=== PATIENT | female | born 1970 | race Caucasian/White ===

== ENCOUNTER → 2016-10-25 | Day surgery (SDC) | payer OTHER ==
[~2016-10-25] MED LIST: AREDS PO; BUPROPION XL150 MG PO; CLARITIN10 M3 PO; FLEXERIL10 MG PO; HYDROCODON-ACE1 EAC7 PO; HYDROXYZINE HCL50 MG PO; INDERAL20 MG PO; OXCARBAZEPINE150 M2 PO; ROBAXIN500 MG PO; STOOL SOFTENER100 M1 PO; VITAMIN D250000 UNIT PO; VOLTAREN75 MG PO
--- NOTE | ~2016-10-25 | OR ---
Unit #: [id number] #: [id number] Patient: SHAQUILLE AMIN [id number] [address] [place], [place] [address] [id number] O MR#: [id number] NAME: SHAQUILLE AMIN ROOM: Date of Procedure: 10/25/2016 Admission Date: 10/25/2016 Surgeon: Adriano Em M.D. : 1970 Attending Physician: Adriano Em M.D. Primary Care Physician: Kaushik Lombardi Aprn OPERATIVE REPORT PREOPERATIVE DIAGNOSES 1. Chronic arachnoiditis with L5 radiculopathy bilaterally. 2. Postlaminectomy pain syndrome. 3. Chronic pain syndrome. POSTOPERATIVE DIAGNOSES 1. Chronic arachnoiditis with L5 radiculopathy bilaterally. 2. Postlaminectomy pain syndrome. 3. Chronic pain syndrome. PROCEDURES PERFORMED 1. Implantation of spinal cord stimulator Medtronic Octrode x2. 2. Physician programing of stimulator over 1 hour. 3. Fluoroscopy. SURGICAL INDICATION AND RATIONALE Ms. Mariela Maloney is a pleasant 46-year-old female, who has been having severe low back pain for over a decade, which also radiates down the leg. The patient has pins and needles sensation associated with this pain. The patient has had spinal fusion done about 4 years ago and has been in miserable pain. The patient has tried pain medications, epidural injections, nonsteroidal anti-inflammatory medications, physical therapy, day care home provider, various type of epidurals in the past, which have not helped the patient. This culminated and the patient having a spinal fusion surgery, which also has not helped to contain her pain. The patient consistently rates her pain at about 8 to 9 out of 10 and at times describes this pain as being lancinating and burning in nature. The patient has an element of neuropathic pain, which I believe will be amenable to spinal cord stimulation. The patient is undergoing cardiac clearance and a psychological evaluation both of which did not indicate any contraindication to move forward. The patient has also undergone an extensive education process regarding the do's, don't's, and the risks, benefits, and alternatives available and she acknowledges understanding of how this device works and the process through which she has to go through a trial first before going for the permanent implantation. DESCRIPTION OF PROCEDURE After obtaining full informed consent and after discussion with the patient of possible complications including infection, bleeding, paralysis, mild headaches, , and other perioperative complications were discussed with the patient and consent was obtained in front of the preoperative nurse, Cristina. The patient was then taken back to the Unit #: [id number] #: [id number] Patient: SHAQUILLE AMIN operating room where she was placed in the prone position and monitored anesthesia care was provided by the anesthesiology after all standard monitors are placed. The patient was prepped and draped in the usual fashion. 30 minutes before entering the operating room, the patient received 2 g of vancomycin. The patient's back was then visualized under fluoroscopy and I identified the interspace between L2 and L3. After the skin target sites were anesthetized, I placed a 14-gauge Tuohy needle into the L2-3 interspace using loss of resistance technique. Once the epidural space was accessed I navigated a Medtronic 8-electrode through the Tuohy to reach the midline at the upper border of T7. I made sure to visualize the lateral fluoroscopic view to make sure the electrode was to posterior epidural space. Once this electrode was in place, I placed a second Tuohy needle to access the epidural space once again using loss of resistance technique. Once the epidural space was accessed and after negative aspiration of heme, CSF, and paresthesia, I placed a second Medtronic 8 contact electrode through the Tuohy needle again using the midline position and ascertaining that the electrode was in the posterior epidural space using lateral projection of the C-arm. I made sure that this electrode was in the midline right behind the contact 8 of the first electrode. This then allowed the 16 electrodes to be in a straight line from T7 down. Once the electrode in place, the patient was brought back to a more superficial plane of anesthesia, so I could freely communicate with the patient. Once this was done, spinal cord stimulator programing was conducted. I was able to get all the painful areas in the low back and down both lower extremities with paresthesia from the spinal cord programing. The patient made the remark that 100% of her painful areas were covered with stimulation. Once this was done, the Tuohy needle along with stylets were removed and the 2 electrodes were secured to the skin using Mastisol, Steri-Strips, and Tegaderm. The patient was then brought back to the recovery room for neurological monitoring. PLAN OF CARE The patient was discharged home after she recovered from anesthesia with the instruction that she should return to my office the following Friday to conduct high definition evolved workflow programing. The patient acknowledges understanding of all the risks, benefits, and alternatives available and would like to proceed. Dictated by... Delia Mcfadden/jaime TD: 10/26/2016 06:19 JOB #: [id number] OPERATIVE REPORT Page 1 of 1 X Adriano Em MD X PROCEDURE OPERATIVE NOTE
--- NOTE | ~2016-10-25 | CR119 ---
[facility] A Service of [facility] RADIOLOGY TEXT RESULTS PATIENT: SHAQUILLE AMIN LOCATION: [facility] : 66 UNIT #: [id number] AGE: [address]: Adriano Em MD SEX: F ORDER DR: [id number] [facility] [address] [place], [place] [address] [id number] O MR#: [id number] Acc #: [id number] NAME: SHAQUILLE AMIN : 1970 SEX: F STUDY DATE/TIME: 10/25/2016 15:34 UNIT: [facility] ROOM: STUDY DESCRIPTION: CR Fluoro Up To 1 Hr Attending Physician: Adriano Em M.D. Ordering Physician: Ivan Em M.D. Primary Care Physician: Kaushik Lombardi Aprn MEDICAL IMAGING REPORT This report is preliminary unless electronic signature is present EXAM Thoracic spine intraoperative spot films, 4 views HISTORY Back pain. Spinal cord stimulator placement. FINDINGS 4 fluoroscopic intraoperative spot films of the lower thoracic spine extending to the thoracolumbar junction demonstrate intraspinal stimulator leads extending along the posterior margin of the lower thoracic canal, with their tips directed superiorly at T7 and T8. Dictated by... Jaswinder Reed M.D. THIS IS AN ELECTRONICALLY VERIFIED REPORT Jaswinder Reed M.D. at 10/26/2016 11:40 PM DFL/pcl TD: 10/25/2016 21:27 JOB #: [id number] MEDICAL IMAGING REPORT Page 1 of 1 COPY
--- NOTE | ~2016-10-25 | EKG ---
PATIENT: SHAQUILLE AMIN UNIT #: [id number] Ventricular Rate: 85 BPM Atrial Rate: 85 BPM P-R Interval: 156 ms QRS Duration: 82 ms Q-T Interval: 362 ms QTC Calculation(Bezet): 430 ms P [place]: 66 degrees Calculated R [place]: 29 degrees Calculated T [place]: 55 degrees Diagnosis Line: Normal sinus rhythm Diagnosis Line: Nonspecific T wave abnormality Diagnosis Line: Abnormal ECG Diagnosis Line: No previous ECGs available Diagnosis Line: Confirmed by IAIN GODWIN MD ([id number]) on Diagnosis Line: 10/27/2016 8:43:29 AM INTERPRETING MD: ZHANNA
--- NOTE | ~2016-10-25 | OR ---
Unit #: [id number] #: [id number] Patient: SHAQUILLE AMIN [id number] [address] [place], [place] [address] [id number] O MR#: [id number] NAME: SHAQUILLE AMIN ROOM: Date of Procedure: 10/25/2016 Admission Date: 10/25/2016 Surgeon: Adriano Em M.D. : 1970 Attending Physician: Adriano Em M.D. Primary Care Physician: Kaushik Lombardi Aprn OPERATIVE REPORT PREOPERATIVE DIAGNOSIS Internal disruption of disk with L5 radiculopathy, bilateral, right side worse than left. POSTOPERATIVE DIAGNOSIS Internal disruption of disk with L5 radiculopathy, bilateral, right side worse than left. PROCEDURES PERFORMED 1. Spinal cord stimulator trial. 2. Fluoroscopy. 3. Physician programing of stimulator. SURGICAL INDICATION AND RATIONALE Ms. Mariela Maloney is a pleasant 46-year-old female, who is an obese lady, who has been having severe degenerative disk disease along with radiculopathy, mainly in the distribution at the L5 level, worse on the right side, but she also has pain on the left side also. The patient has undergone other conservative treatment options including care center manager; physical therapy; home exercises; nonsteroidal anti-inflammatories; oral opioid medications; neuropathic agents like Neurontin, Topamax, and Lyrica with very little relief. The patient has undergone an extensive education process regarding the spinal cord stimulator and how it works and what are the risks, benefits, and alternatives available. The patient has also undergone an extensive education process with the [employer] representative regarding spinal cord stimulation. The patient also has undergone a psychological evaluation along with a cardiac evaluation, both of which did not show any abnormalities. The patient is here today to have the spinal cord stimulator trial. DESCRIPTION OF PROCEDURE After obtaining full informed consent and after discussion with the patient of possible complications including infection, bleeding, paralysis, mild headaches, , and other perioperative complications were discussed with the patient and consent was obtained in front of the nurse, Brooke. The patient was then taken back to the operating room, where a time-out was done in accordance to the joint commission guidelines where the patient's identity, procedure, and side of procedure were verified. The patient was then positioned in the prone position. Standard monitors were placed and monitored anesthesia care was provided by the anesthesiologist. The patient was then prepped and draped in the usual fashion. Then, I used a 14-gauge Tuohy needle after the skin was Unit #: [id number] #: [id number] Patient: SHAQUILLE AMIN anesthetized, placed into the epidural space, which I was able to achieve at first pass. After negative aspiration for heme, CSF, and paresthesia and after placement of this needle between the L2-3 interspace, I was able to navigate a Medtronic subcompact 8-contact electrode through the Tuohy needle to reach the upper border of T7 in the midline. I made sure that I visualized this in lateral projections of the C-arm, so that the electrode was in the posterior epidural space. Once this was done, I anesthetized the skin again and placed a second 14-gauge Tuohy needle using a right paramedian approach to access the epidural space using the same space as before, and I achieved this at first pass with negative aspiration for heme, CSF, and paresthesia. I then navigated a second Medtronic compact electrode, such that it was over the line. Contacts 8 to 15 would be last contact at the bottom of T8. Once again, this was placed in the midline. I then removed the stylet and connected it to a temporary programing unit. The patient was then brought back into a more superficial plane of anesthesia, so she could freely communicate with me. Once this was achieved, spinal cord stimulator programing was conducted and we were able to get good coverage of all her painful areas, both in her low back and down both the lower extremities. Once this was determined, the Tuohy needle along with the stylets were removed and I secured the two electrodes to the skin using Mastisol and Steri-Strips. A Tegaderm dressing was then placed over it and the patient was then brought back to the recovery room for neurological monitoring. PLAN OF CARE The patient had an uneventful recovery period and was discharged home neurologically intact with plans to return to my office on Friday to start stimulation using low-density stimulation. We have moved forward with the evolve workflow trial using high-density stimulation. This means the patient will not feel any paresthesia with the high-density stimulation, which is what has been started today. The patient acknowledges understanding of all the risks, benefits, and alternatives available and would like to proceed. The patient will be seen in my office on Friday. Dictated by... Delia Mcfadden/jaime TD: 11/03/2016 20:29 JOB #: [id number] OPERATIVE REPORT Page 1 of 1 X Adriano Em MD X PROCEDURE OPERATIVE NOTE
== END | disposition home or self-care (01) ==
LOC: CSUR 13:06
DX: G03.1 Chronic meningitis (principal); M54.16 Radiculopathy, lumbar region; M96.1 Postlaminectomy syndrome, not elsewhere classified; G89.4 Chronic pain syndrome
CPT/HCPCS: 72100; 76000; 84703; 93005; C1778; J1885; J2250; J3010; J3370